=== PATIENT | male | born 1955 | race Two or more races ===

== ENCOUNTER 2017-08-11 14:13 | Emergency (ER) | payer MEDICAID, OTHER ==
[~2017-08-11] VITALS: Ht 182.9 cm; Wt 133.8 kg
[~2017-08-11 14:13] MED LIST: ACETAMINOP160 MG/55 ORAL; BENAZEPRIL HCL10 MG ORAL; BUSPAR10 MG ORAL; CHLORTHALIDONE25 MG ORAL; CYMBALTA30 MG ORAL; DITROPAN10 MG ORAL; HYTRIN10 MG PO; LORATADINE10 M1 PO; MORPHINE S10 MG/5 ML ORAL; NEURONTIN600 MG ORAL; PRAVASTATIN SOD20 M1 ORAL; PREDNISONE5 M4 PO
[2017-08-11 14:25] VITALS: BP 151/86
--- NOTE | 2017-08-11 14:41 | Emergency Room Report ---
History of Present Illness General Chief Complaint: Back Pain-No Injury Source: Patient, Medical Record Present Illness HPI 62-year-old male with significant past medical history of chronic back pain due to disc herniation, and prostate cancer, here today at the complaining of exacerbation of back pain. Patient is currently under treatment of pain management, taking some IM injections of unknown origin. Passive appointment with primary doctor on Saturday. Patient denies any bladder, bowel incontinence, saddle paresthesia. Patient denies taking any pain medication at home. Patient rates the pain 10 out of 10, radiating to both legs, denies tingling/ numbness CURES was done on patient and recent dispense of 60 pills of Wingate 5 mg on 07/30 was printed Allergies: Coded Allergies: No Known Allergies (Unverified , 06/23/15) Patient History Past Medical History: see triage record Past Surgical History: none Immunizations: UTD Reviewed Nursing Documentation: PMH: Agreed; PSxH: Agreed Nursing Documentation-PMH Past Medical History: No History, Except For Hx Cardiac Problems: Yes Hx Hypertension: Yes Hx Diabetes: Yes Hx Cancer: Yes - prostate Hx Gastrointestinal Problems: No Hx Neurological Problems: Yes - arthritis Hx Transient Ischemic Attacks: Yes Review of Systems All Other Systems: negative except mentioned in HPI Physical Exam Vital Signs Date Time Temp Pulse Resp B/P (MAP) Pulse Ox O2 Delivery O2 Flow Rate FiO2 08/11/17 14:19 98.2 84 18 151/86 98 Room Air 98.2 Sp02 EP Interpretation: reviewed, normal General Appearance: normal inspection, well appearing, no apparent distress, alert, GCS 15 Head: normocephalic ENT: normal ENT inspection, hearing grossly normal Neck: normal inspection, full range of motion, supple Respiratory: normal inspection, chest non-tender, lungs clear Cardiovascular #1: normal inspection, normal peripheral pulses, regular rate, rhythm, no edema Gastrointestinal: normal inspection, normal bowel sounds Rectal: deferred Genitourinary: deferred Musculoskeletal: decreased range of motion - both legs, other - pt is on wheelchalir, lower back TTP Neurologic: normal inspection, alert, oriented x3, responsive Psychiatric: normal inspection, judgement/insight normal Skin: normal inspection, normal color, no rash Lymphatic: normal inspection, no adenopathy Medical Decision Making PA Attestation all orders, diagnosis, treatment plans were discussed and reviewed by myself supervising physician Dr. Alcala Reaction to Intervention: Improved Diagnostic Impression: Primary Impression: Chronic back pain Additional Impression: Prostate cancer ER Course 62-year-old male with significant past medical history of chronic back pain due to disc herniation, and prostate cancer, here today at the complaining of exacerbation of back pain. Patient is currently under treatment of pain management, taking some IM injections of unknown origin. Passive appointment with primary doctor on Saturday. Patient denies any bladder, bowel incontinence, saddle paresthesia. Patient denies taking any pain medication at home. Patient rates the pain 10 out of 10, radiating to both legs, denies tingling/ numbness CURES was done on patient and recent dispense of 60 pills of Wingate 5 mg on 07/30 was printed Ddx considered but are not limited to chronic back pain, prostate cancer Vital signs: are WNL, pt. is afebrile H&PE are most consistent with chronic back pain ORDERS: toradol 30mg IM ED INTERVENTIONS: None required at this time. DISCHARGE: At this time pt. is stable for d/c to home. Will provide printed patient care instructions, and any necessary prescriptions. Care plan and follow up instructions have been discussed with the patient prior to discharge. Last Vital Signs Date Time Temp Pulse Resp B/P (MAP) Pulse Ox O2 Delivery O2 Flow Rate FiO2 08/11/17 14:25 98.2 84 18 151/86 98 Room Air 98.2 Disposition: HOME, SELF-CARE Condition: Stable Referrals: NOT CHOSEN [facility],REFERRING (PCP) Patient Instructions: Back Pain, Adult, Chronic Pain Additional Instructions: follow up with primary provider and pain management. if urinary/bladder incontinence, return to ED. Lana Medel Aug 11, 2017 14:41
[2017-08-11] MEDS ORDERED: Ketorolac 30mg Inj IM ONE (14:45)
[2017-08-11 15:01] VITALS: BP 142/80
== END 2017-08-11 15:01 | disposition home or self-care (01) ==
LOC: EMR 14:30
DX: G89.29 Other chronic pain (principal); M54.9 Dorsalgia, unspecified; C61 Malignant neoplasm of prostate; M51.26 Other intervertebral disc displacement, lumbar region; I10 Essential (primary) hypertension; E11.9 Type 2 diabetes mellitus without complications; Z86.73 Personal history of transient ischemic attack (TIA), and cerebral infarction without residual deficits
CPT/HCPCS: 96372; 99283; J1885

== ENCOUNTER 2018-10-04 19:18 | Emergency (ER) | payer MEDICAID ==
[~2018-10-04] VITALS: Ht 182.9 cm; Wt 133.8 kg
[2018-10-04] MEDS ORDERED: HUMALOG100 UNIT/4 SUBQ (19:26)
[2018-10-04] MEDS ORDERED: METFORMIN HCL500 M1 ORAL (19:26)
[2018-10-04] MEDS ORDERED: LOSARTAN POTASS25 MG ORAL ×2 (19:26→21:14)
[2018-10-04] MEDS ORDERED: LANTUS SOL100 UNIT/1 SUBQ (19:26)
--- NOTE | 2018-10-04 19:34 | NUR ---
ER Nurse Note: Pt walked in c/o LT shoulder pain d/t hitting a door frame while getting to his walker around 1900. Pt stated he heard a pop and has limited range of motion on LT shoulder. Cap refill less than 3 secs. ERMD at pt side; will continue to montior.
[2018-10-04 19:37] VITALS: BP 133/80
--- NOTE | 2018-10-04 19:43 | Emergency Room Report ---
History of Present Illness General Chief Complaint: Multiple Trauma/Fall Source: Patient Present Illness HPI Patient is a 63-year-old male who presents after increased left upper extremity pain. Patient reports having prior history of chronic pain. He reports having increased discomfort after striking his left shoulder against a door jam after slipping and falling. He denies any loss of consciousness. He reports having some chronic joint pain to his lower extremities. He reports having some popping sensation there. Pain is predominantly to the area above his trapezius. He denies any nausea or vomiting.Patient had been recently hospitalized at another facility. Allergies: Coded Allergies: No Known Allergies (Unverified , 06/23/15) Patient History Past Medical History: see triage record Reviewed Nursing Documentation: PMH: Agreed; PSxH: Agreed Nursing Documentation-PMH Hx Cardiac Problems: Yes Hx Hypertension: Yes Hx Diabetes: Yes - Type 2 Hx Cancer: Yes - prostate Hx Gastrointestinal Problems: No Hx Neurological Problems: Yes - arthritis Hx Transient Ischemic Attacks: Yes Review of Systems All Other Systems: limited Physical Exam Vital Signs Date Time Temp Pulse Resp B/P (MAP) Pulse Ox O2 Delivery O2 Flow Rate FiO2 10/04/18 19:20 98.8 77 18 133/80 (97) 96 Room Air General Appearance: alert, GCS 15, non-toxic, obese, Chronically Ill ENT: normal ENT inspection Neck: normal inspection, full range of motion, supple, other - decreased ability to abduct greater than 90 degrees at shoulder, external rotation normal Respiratory: normal inspection, lungs clear Cardiovascular #1: normal inspection, edema - trace edema Gastrointestinal: normal inspection Musculoskeletal: decreased range of motion - decreased ability to abduct greater than 90 degrees., other - left wrist volar givens's cyst Neurologic: normal inspection, alert, oriented x3, responsive Psychiatric: normal inspection Medical Decision Making Diagnostic Impression: Primary Impression: Shoulder pain, left ER Course Patient presented for increased left-sided shoulder pain. Differential diagnosis include was not limited to contusion, muscle injury, fracture among others. Because of complexity of patient's case imaging studies were ordered. Patient presented for increased left-sided shoulder pain after reported recent trauma. Patient had be seen by me one day prior another hospital. Patient was noted to have some prior history of chronic pain and he does appear to have some exacerbation of his chronic pain. Patient had been noted to have normal range of motion to his neck. He had some tenderness to the musculature of the trapezius.Patient denies any chest discomfort or shortness of breath. Given the patient's recent traumatic injury. The patient's pain is likely musculoskeletal.Patient noted to have slightly decreased range of motion to the left shoulder. X-ray imaging read by radiology 3 views show normal bony alignment without an fracture patient appears to be stable for discharge.Patient advised to follow-up with primary care physician for recheck. He is given prescription for meloxicam. Last Vital Signs Date Time Temp Pulse Resp B/P (MAP) Pulse Ox O2 Delivery O2 Flow Rate FiO2 10/04/18 19:20 98.8 77 18 133/80 (97) 96 Room Air Status: improved Disposition: HOME, SELF-CARE Condition: Stable Scripts Losartan Potassium* (LOSARTAN POTASSIUM*) 25 Mg Tablet 25 MG ORAL DAILY for hypertension, #30 TAB Prov: Ady Spencer MD 10/04/18 Meloxicam* (MELOXICAM*) 15 Mg Tablet 15 MG PO DAILY, #30 TAB Prov: Ady Spencer MD 10/04/18 Ady Spencer MD Oct 04, 2018 19:43
--- NOTE | 2018-10-04 20:31 | Diagnostic Imaging Report ---
EXAM: XR Left Shoulder Complete, 2 or More Views CLINICAL HISTORY: PAIN TECHNIQUE: Two or more views of the left shoulder. COMPARISON: No relevant prior studies available. FINDINGS: Bones/joints: No acute fracture. No dislocation. Moderate arthrosis of the acromioclavicular joint. Soft tissues: Unremarkable. IMPRESSION: No acute findings.
[2018-10-04] MEDS ORDERED: MELOXICAM15 MG PO (21:04)
[2018-10-04] MEDS ORDERED: Ketorolac 30mg Inj IM ONE (21:15)
[2018-10-04 21:18] VITALS: BP 133/80
--- NOTE | 2018-10-04 21:18 | NUR ---
ER Nurse Note: Pt seen, treated, medically cleared for discharge by ERMD. Discharge instuctions and prescriptions given with repeat verbalization by pt. Emphasized to follow up with primay care provider; take whole course of medication. Explained each medication. All orders completed per ERMD orders. Pt a&ox4, VSS, no signs of distress. ID band removed. All questions answered per pt's questions. Pt left with all belongings, left with own transportation.
== END 2018-10-04 21:18 | disposition home or self-care (01) ==
LOC: EMR 20:04
DX: M25.512 Pain in left shoulder (principal); G89.29 Other chronic pain; I10 Essential (primary) hypertension; E11.9 Type 2 diabetes mellitus without complications; M19.90 Unspecified osteoarthritis, unspecified site; Z86.73 Personal history of transient ischemic attack (TIA), and cerebral infarction without residual deficits; Z85.46 Personal history of malignant neoplasm of prostate; J45.909 Unspecified asthma, uncomplicated
CPT/HCPCS: 73030; 96372; 99283; J1885

== ENCOUNTER 2020-01-27 22:44 | Emergency (ER) | payer MEDICAID, OTHER ==
[~2020-01-27] VITALS: Ht 182.9 cm; Wt 136.1 kg
[~2020-01-27 22:44] MED LIST changes: +HUMALOG100 UNIT/4 SUBQ; +LANTUS SOL100 UNIT/1 SUBQ; +LOSARTAN POTASS25 MG ORAL; +MELOXICAM15 MG PO; +METFORMIN HCL500 M1 ORAL
--- NOTE | 2020-01-27 22:52 | NUR ---
ED Nurse Note: pt walk into the Er with a crutch, pt has 40+ stitches on L side placed on 01/19, needs them removed. pt has no pain at the moment, no s/s of infection, and vitals are stable.
--- NOTE | 2020-01-27 23:19 | Emergency Room Report ---
History of Present Illness General Chief Complaint: Wound Recheck/Suture Removal Source: Patient Present Illness HPI Disclaimer: Please note that this report is being documented using DRAGON technology. This can lead to erroneous entry secondary to incorrect interpretation by the dictating instrument. HPI: 64-year-old male presents for evaluation of wound and suture removal. The patient states he was seen in [facility] on 01/19 and had multiple stitches put in on the left side of his abdomen after he fell through a glass table. He is currently on Keflex. Denies dehiscence, purulence or drainage. Reports soreness over the stitches. Denies any new trauma. No other complaints at this time. 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 EOMI. Resp: Normal work of breathing Skin: 2 linear lacerations over the left lower abdomen with intact sutures. There is a running stitch and simple interrupted sutures in place. There is still some separation between the tissues. No purulent drainage. No active bleeding though there is some serous drainage. MSK: Normal tone and bulk. Moving all extremities. No obvious deformity. Neuro: Awake and alert. Mentating appropriately Medical Decision Making Diagnostic Impression: Primary Impression: Encounter for wound re-check ER Course 64-year-old male presents for evaluation of sutured wound placed on 01/19 and [facility]. The wounds are clean and intact I believe not fully healed. Patient would benefit from additional 2 to 3 days with retained sutures. Instructed him to return for removal in 2 to 3 days and to continue antibiotics and wound care as he has been. Otherwise well-appearing. No other complaints at this time. Stable for outpatient follow-up. Last Vital Signs Date Time Temp Pulse Resp B/P (MAP) Pulse Ox O2 Delivery O2 Flow Rate FiO2 01/27/20 22:51 98.4 98 18 96 Room Air Disposition: HOME, SELF-CARE Condition: Stable [facility]errals: [facility]ERR[facility] ([facility]P) Patient Instructions: Wound Check Additional Instructions: Return in 2 to 3 days for stitches removal or proceed to any other urgent care or hospital. Continue wound care as you have. Continue antibiotics. Return with new or worsening symptoms. Jaren Irby MD Jan 27, 2020 23:19
--- NOTE | 2020-01-27 23:25 | NUR ---
ER DISCHARGE NOTE: Patient is cleared to be discharged per ERMD, pt is aox4, on room air, with stable vital signs. pt was given dcinstructions, pt was able to verbalize understanding, pt id band removed without complications. pt is able to ambulate with crutches in a steady gait. pt took all belongings.
== END 2020-01-27 23:25 | disposition home or self-care (01) ==
LOC: EMR 23:00
DX: Z76.89 Persons encountering health services in other specified circumstances (principal); S31.119D Laceration without foreign body of abdominal wall, unspecified quadrant without penetration into peritoneal cavity, subsequent encounter; I11.9 Hypertensive heart disease without heart failure; E11.8 Type 2 diabetes mellitus with unspecified complications; W01.110D Fall on same level from slipping, tripping and stumbling with subsequent striking against sharp glass, subsequent encounter; Z85.46 Personal history of malignant neoplasm of prostate; Z86.73 Personal history of transient ischemic attack (TIA), and cerebral infarction without residual deficits
CPT/HCPCS: 99281

== ENCOUNTER 2020-01-31 22:17 | Emergency (ER) | payer OTHER ==
[~2020-01-31] VITALS: Ht 182.9 cm; Wt 136.1 kg
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
[2020-01-31] MEDS ORDERED: DOXYCYCLINE MO100 MG ORAL (22:48)
--- NOTE | 2020-01-31 22:50 | NUR ---
ER DISCHARGE NOTE: Patient is cleared to be discharged per ERMD, pt is aox4, on room air, with stable vital signs. pt was given dc and prescription instructions, pt was able to verbalize understanding, pt id band removed. pt is able to ambulate with steady gait. pt took all belongings.
[2020-01-31 22:51] VITALS: BP 153/99
--- NOTE | 2020-01-31 22:59 | Emergency Room Report ---
History of Present Illness General Chief Complaint: Wound Recheck/Suture Removal Present Illness HPI 64-year-old male here for wound check. On January 19 the patient fell through a glass table suffering a large laceration to his left thigh and lower back. Patient had laceration repair at [facility]. Patient came here because "the line was too long there." He finished a course of Keflex 2 days ago. Denies drainage. Says that the wound is slightly more painful today than yesterday. Says that he believes it is more red than yesterday as well. 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 EOMI. Resp: Normal work of breathing Skin: 2 linear lacerations over the left lower abdomen with intact sutures. There is a running stitch and simple interrupted sutures in place. There is still some separation between the tissues. No purulent drainage. No active bleeding. Small amount of induration and mild amount of erythema spreading from the wound superiorly MSK: Normal tone and bulk. Moving all extremities. No obvious deformity. Neuro: Awake and alert. Mentating appropriately Medical Decision Making Diagnostic Impression: Primary Impression: Encounter for removal of sutures ER Course 64-year-old male here for wound check. Patient has several large lacerations on his left thigh and the lower back. Multiple sutures were removed however the inferior most aspect of the laceration appeared to have some separation of the 2 sides of the wound. The sutures were left intact. Patient was told to return to the emergency department in 3 days for suture removal. He expressed understanding. There was some induration and erythema of the wound and patient was given a prescription for doxycycline to take for 7 days. Was told to come back to the emergency department for wound evisceration, purulent drainage, worsening pain, fevers. He expressed understanding and was discharged. Last Vital Signs Date Time Temp Pulse Resp B/P (MAP) Pulse Ox O2 Delivery O2 Flow Rate FiO2 01/31/20 22:51 98.6 92 18 140/98 98 Room Air Disposition: HOME, SELF-CARE Condition: Stable Scripts Doxycycline Monohydrate* (DOXYCYCLINE MONOHYDRATE*) 100 Mg Capsule 100 MG ORAL TWICE A DAY, #10 CAP 0 Refills Prov: Sidney Calvin M.D. 01/31/20 [facility]errals[facility] ([facility]P) [facility] Patient Instructions: Wound Check Additional Instructions: Please come back to the emergency department in 3 days to take out the remaining sutures. Sidney Calvin M.D. Jan 31, 2020 22:59
== END 2020-01-31 22:50 | disposition home or self-care (01) ==
LOC: EMR 22:33
DX: S71.112D Laceration without foreign body, left thigh, subsequent encounter (principal); X58.XXXD Exposure to other specified factors, subsequent encounter; Z48.02 Encounter for removal of sutures; I10 Essential (primary) hypertension; E11.9 Type 2 diabetes mellitus without complications; Z85.46 Personal history of malignant neoplasm of prostate; Z86.73 Personal history of transient ischemic attack (TIA), and cerebral infarction without residual deficits
CPT/HCPCS: 99282

== ENCOUNTER 2020-02-04 01:05 | Emergency (ER) | payer OTHER ==
[~2020-02-04] VITALS: Ht 182.9 cm; Wt 136.1 kg
[~2020-02-04 01:05] MED LIST changes: +DOXYCYCLINE MO100 MG ORAL
[2020-02-04 01:15] VITALS: BP 152/89
[2020-02-04] MEDS ORDERED: NORCO 5-325 TA1 EAC1 ORAL (01:16)
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
[2020-02-04 01:40] VITALS: BP 138/82
[2020-02-04] MEDS ORDERED: Bacitracin Oint UD TOPIC ONE (01:45)
== END 2020-02-04 01:40 | disposition home or self-care (01) ==
LOC: EMR 01:30
DX: Z48.02 Encounter for removal of sutures (principal); S31.119D Laceration without foreign body of abdominal wall, unspecified quadrant without penetration into peritoneal cavity, subsequent encounter; I11.9 Hypertensive heart disease without heart failure; E11.9 Type 2 diabetes mellitus without complications; Y09 Assault by unspecified means; Z79.4 Long term (current) use of insulin; Z85.46 Personal history of malignant neoplasm of prostate; Z86.73 Personal history of transient ischemic attack (TIA), and cerebral infarction without residual deficits
CPT/HCPCS: 99282